=== PATIENT | female | born 1980 | race Caucasian/White ===

== ENCOUNTER 2024-02-24 08:46 | Emergency (ER) | payer BC ==
[2024-02-24] MEDS: Ondansetron 4 MG/2 ML SDV IVPUSH ONE ×2 (09:10→09:29)
[2024-02-24 09:19] LABS: BASOPHILS PERCENT AUTO 0.2 % (0.0-1.0); HEMATOCRIT 42.4 % (37.0-47.0); HEMOGLOBIN 14.4 g/dL (12.0-16.0); LYMPHOCYTES PERCENT AUTO 4.9 % (20.5-50.1); MEAN CORPUSCULAR HEMOGLOBIN 30.8 pg (27.0-34.0); MEAN CORPUSCULAR VOLUME 90.6 fL (80-100); MONOCYTES PERCENT AUTO 1.8 % (2-8); NEUTROPHILS PERCENT AUTO 93.1 % (42.2-75.2); PLATELET COUNT,PLT 400 10^3/uL (150-450); RED BLOOD CELL COUNT 4.68 10^6/uL (4.2-5.4); WHITE BLOOD CELL COUNT,WBC 14.6 10^3/uL (5.0-10.0)
[2024-02-24] MEDS: Sodium Chloride 0.9% 1,000 ML IV ONE ×3 (09:19→14:25)
[2024-02-24] MEDS: Ondansetron 4 MG/2 ML SDV ONE (09:21)
[2024-02-24 09:29] LABS: ALANINE AMINOTRANSFERASE,ALT 23 U/L (14-59); ALBUMIN 4.4 g/dL (3.4-5.0); ALKALINE PHOSPHATASE 74 U/L (46-116); ANION GAP 23.3 mEq/L (7-13); ASPARTATE AMNIOTRANSFERASE,AST 19 U/L (15-37); BILIRUBIN TOTAL 0.9 mg/dL (0.2-1.0); BLOOD UREA NITROGEN,BUN 13 mg/dL (7-18); BUN/CREATININE RATIO 11.4 (No establ ref range); CALCIUM 9.8 mg/dL (8.5-10.1); CARBON DIOXIDE,CO2 18 mmol/L (21-32); CHLORIDE,CL 99 mmol/L (98-107); CREATININE 1.14 mg/dL (0.55-1.02); EST CRCL DRUG DOSING (CG) 54.38 mL/min; GLUCOSE RANDOM 189 mg/dL (70-99); LIPASE 36 U/L (16-77); MAGNESIUM 1.5 mg/dL (1.8-2.4); POTASSIUM,K 3.3 mmol/L (3.5-5.1); PROTEIN TOTAL,TP 8.7 g/dL (6.4-8.2); SODIUM,NA 137 mmol/L (136-145)
[2024-02-24] MEDS: Ketorolac 30 MG/ML SDV IVPUSH ONE (09:34)
[2024-02-24 09:44] LABS: ESTIMATED GFR 61 mL/min (>=60)
[2024-02-24 09:46] LABS: HCG QUALITATIVE,SERUM NEGATIVE (NEGATIVE)
[2024-02-24] MEDS: diphenhydrAMINE 50 MG/ML SDV IVPUSH ONE (10:03)
[2024-02-24] MEDS: Metoclopramide 10 MG/2 ML SDV IVPUSH ONE (10:03)
[2024-02-24] MEDS: Iopamidol 612 MG/ML 100 ML Bottle IVPUSH ONE (10:51)
[2024-02-24 11:05] LABS: APPEARANCE,URINE CLEAR (CLEAR); BILIRUBIN,URINE NEGATIVE (NEGATIVE); COLOR,URINE YELLOW (YELLOW); GLUCOSE,URINE NEGATIVE (NEGATIVE); KETONES,URINE >=160 (NEGATIVE); LEUKOCYTE ESTERASE,URINE NEGATIVE (NEGATIVE); NITRITE,URINE NEGATIVE (NEGATIVE); OCCULT BLOOD,URINE NEGATIVE (NEGATIVE); PH,URINE 8.5 (5.0-9.0); PROTEIN,URINE 100 (NEGATIVE); UROBILINOGEN,URINE 0.2 mg/dL (0.2-1.0)
[2024-02-24] MEDS: Promethazine 25 MG/ML SDV IM ONE (11:18)
[2024-02-24 11:20] LABS: AMORPHOUS SEDIMENT,URINE FEW /HPF (NOT SEEN); BACTERIA,URINE MANY /HPF (0-FEW/HPF); EPITHELIAL CELLS,URINE FEW /HPF (NOT SEEN); MUCUS,URINE MANY /LPF (NOT SEEN); RBC,URINE 0-5 /HPF (0-5)
[2024-02-24] MEDS: LORazepam 2 MG/ML SDV IVPUSH ONE (13:11)
[2024-02-24 14:11] LABS: AMPHETAMINES,URINE NEGATIVE (NEGATIVE); BARBITURATES,URINE NEGATIVE (NEGATIVE); BENZODIAZEPINE,URINE NEGATIVE (NEGATIVE); MDMA (ECSTASY), URINE NEGATIVE (NEGATIVE); METHADONE,URINE NEGATIVE (NEGATIVE); METHAMPHETAMINES,URINE NEGATIVE (NEGATIVE); OPIATES,URINE NEGATIVE (NEGATIVE); OXYCODONE,URINE NEGATIVE (NEGATIVE); PHENCYCLIDINE,URINE NEGATIVE (NEGATIVE); TCA,URINE NEGATIVE (NEGATIVE)
[2024-02-24] MEDS: Haloperidol Lactate 5 MG/ML SDV IVPUSH ONE (14:24)
[2024-02-24 15:59] LABS: ANION GAP 13.5 mEq/L (7-13); CALCIUM 7.5 mg/dL (8.5-10.1); CREATININE 0.64 mg/dL (0.55-1.02); EST CRCL DRUG DOSING (CG) 96.86 mL/min; POTASSIUM,K 3.5 mmol/L (3.5-5.1)
[2024-02-24] MEDS: Iopamidol 755 Mg/ML 100 ML Bottle IVPUSH ONE (17:27)
[2024-02-24] MEDS: Take Home: Ondansetron 4 MG Tab.DIS, 5 Tab Pack PO ONE ×2 (18:35)
== END 2024-02-24 18:40 | disposition home or self-care (01) ==
LOC: DL.ED 08:46
DX: K52.9 Noninfective gastroenteritis and colitis, unspecified (principal)
CPT/HCPCS: 36415; 71275; 74018; 74177; 80048; 80053; 80305; 81001; 82009; 82800; 83605; 83690; 83735; 84443; 84703; 85025; 85379; 87635; 96361; 96372; 96374; 96375; 99284; J1200; J1630; J1885; J2060; J2405; J2550; J2765; J7030; Q0162; Q9967; U0002